=== PATIENT | female | born 2005 | race African-American/Black ===

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

== ENCOUNTER 2023-03-23 12:24 | Emergency (ER) | payer OTHER ==
[2023-03-23 13:25] LABS: SARS-CoV-2 NAA Rapid Test Not Detected (NotDetected)
== END 2023-03-23 13:55 | disposition home or self-care (01) ==
LOC: ERS 12:24
DX: J06.9 Acute upper respiratory infection, unspecified (principal); Z20.822 Contact with and (suspected) exposure to COVID-19
CPT/HCPCS: 99283